=== PATIENT | female | born 1995 | race American Indian/Alaskan Native ===

== ENCOUNTER 2016-04-12 13:25 | Emergency (ER) | payer BC, OTHER ==
[2016-04-12] MEDS ORDERED: TORADOL IM ONE (18:35)
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
[2016-04-12 19:06] VITALS: BP 140/91
== END 2016-04-12 19:05 | disposition home or self-care (01) ==
LOC: ED 13:25
DX: S16.1XXA Strain of muscle, fascia and tendon at neck level, initial encounter (principal); M54.5 Low back pain; V89.2XXA Person injured in unspecified motor-vehicle accident, traffic, initial encounter; Y93.89 Activity, other specified; Y99.8 Other external cause status; Y92.89 Other specified places as the place of occurrence of the external cause
CPT/HCPCS: 81025; 96372; 99282; J1885